=== PATIENT | male | born 1995 | race African-American/Black ===

== ENCOUNTER 2021-05-31 16:36 | Emergency (ER) | payer SELFPAY ==
[2021-05-31 16:43] VITALS: BP 158/83; PULSE 102; TEMP 98.7; BMI 32.9
[2021-05-31] MEDS ORDERED: METHOCARBAMOL 500 MG TABLET PO ONE (17:08)
[2021-05-31] MEDS ORDERED: LIDOCAINE 5% TOPICAL PATCH TP ONE (17:08)
[2021-05-31] MEDS ORDERED: KETOROLAC TROMETHAMINE 60 MG/2 ML VIAL IM ONE (17:08)
[2021-05-31] MEDS ORDERED: LIDOCAINE 5% TOPICAL PATCH ONE (17:28)
[2021-05-31] MEDS ORDERED: METHOCARBAMOL 500 MG TABLET ONE (17:29)
[2021-05-31] MEDS ORDERED: KETOROLAC TROMETHAMINE 30 MG/1 ML VIAL ONE (17:29)
== END 2021-05-31 18:02 | disposition home or self-care (01) ==
LOC: JERFT 16:36
PROC: 3E023GC Introduction of Other Therapeutic Substance into Muscle, Percutaneous Approach (ICD-10-PCS; principal; 2021-05-31)
DX: M54.42 Lumbago with sciatica, left side (principal)
CPT/HCPCS: 99284-25